=== PATIENT | female | born 1985 | race Hispanic/Latino ===

== ENCOUNTER 2018-12-20 18:16 | Day surgery (SDC) | payer OTHER ==
[2018-12-20] MEDS ORDERED: hydrALAZINE 20 MG/ML VIAL SLOW IVP PRN (18:58)
--- NOTE | 2018-12-20 19:00 | PDOC.FPROB ---
FMR OB H&P: HPI - History of Present Illness Chief Complaint: Decreased FM Indentification: 33yo at 27.3wks History of Present Illness: 33yo at 27.3wks presents for decreased FM since this morning after breakfast. Last at around 1530. Denies LOF, VB, abnormal discharge or dysuria. Has appt scheduled with Dr Avendano on Sunday. Primary Care Physician: Dr Avendano FMR OB H&P: Current - Care : 2 Para: 1 Gestational age: 27.3 Course/Complications: Low lying placenta reportedly resolved 1 mo ago when she saw Dr Avendano FMR OB H&P: History - OB History OB History: Prior complicated by gDM - [employer] History [employer] History: Hx of fibroids and D&C - Surgical History Sx History: Appendectomy - Social History Social History: Denies alcohol, drug and tobacco use. FMR OB H&P: Medications - Current Home Medications: Medication Instructions Recorded Confirmed Type Lyl546/Iron Fum/Folic/Docusate 1 tablet PO DAILY 12/20/18 12/20/18 History [ 19] Allergies/Adverse Reactions: Allergies Allergy/AdvReac Type Severity Reaction Status Date / Time No Known Allergies Allergy Unverified 12/20/18 19:01 FMR OB H&P: ROS - Review of Systems General: denies: fever/chills, fatigue Eyes: denies: vision changes, double vision ENT: denies: nasal congestion, rhinorrhea Cardiovascular: denies: chest pain, palpitation Respiratory: denies: shortness of breath Gastrointestinal: denies: abdominal pain, nausea, vomiting Genitourinary (Female): denies: dysuria, vaginal discharge, vaginal bleeding, contractions FMR OB H&P: Vital Signs - Maternal Vital signs: VS reviewed, wnl SBP 112 - Heart Tones Baseline: 150 Variability: moderate FMR OB H&P: Physical Exam - Physical Exam General: NAD, awake, alert and oriented HEENT: normocephalic and atraumatic, MMM, conjunctiva clear Neck: supple, trachea midline Heart: RRR, no murmurs/rubs/gallops General: CTAB, no respiratory distress Abdomen: soft, gravid, non-tender Musculoskeletal: no misalignment/asymmetry, no atrophy Neurological: no focal deficit Skin: no rash, good tugor Psychiatric: intact recent and remote memory, good judgement and insight, normal mood and affect FMR OB H&P: A/P - Problem List (1) Status: Acute Disposition: 33yo at 27.3wks IUP - Will monitor FHTs with 20min strip, current baseline 150 Dispo: 20min strip with good variability. Pt will follow up with Dr Avendano on Sunday Discussion: Date/Time: 12/20/18 8432 This H&P was discussed with [] and [] who agree with the above documentation and plan. Addendum - Attending - Attending Attestation Date/Time: 12/21/18 7026 I personally evaluated the patient and discussed the management with Dr. Smith. I agree with the History, Examination, Assessment and Plan documented above.
[2018-12-20 19:08] VITALS: BP 112/69; TEMP 98; BMI 32.8
== END 2018-12-20 19:20 | disposition home or self-care (01) ==
LOC: L&D/OP 18:16
PROVIDERS: ATTEND Obstetrics & Gynecology
DX: O36.8120 Decreased fetal movements, second trimester, not applicable or unspecified (principal); Z3A.27 27 weeks gestation of pregnancy
CPT/HCPCS: 99282

== ENCOUNTER 2019-02-09 17:16 | Day surgery (SDC) | payer OTHER ==
[2019-02-09 17:52] VITALS: BMI 34.5
[2019-02-09 17:55] VITALS: BP 122/76; TEMP 98.5
[2019-02-09] MEDS ORDERED: hydrALAZINE 20 MG/ML VIAL SLOW IVP PRN (18:49)
--- NOTE | 2019-02-09 18:57 | PDOC.LDHP ---
Labor and Delivery H&P HPI: Patient is a a33 yo at 34 weeks and 5 days, Mar 18...states HX of previa and was told it resolved, but has follow up sono this week. States good FM. No lof Review of Systems: complete ROS completed and as per HPI Current gestational age (weeks): 34 (5days) Due date: 03/18/19 Dating criteria: last menstrual period Grav: 2 Para: 1 OB History Details: x1 Current complications: other (HX previa but stated it resolved) Past Medical History: none Current medications: pre-kathia vitamins Allergies/Adverse Reactions: Allergies Allergy/AdvReac Type Severity Reaction Status Date / Time No Known Allergies Allergy Unverified 12/20/18 19:01 - Physical Exam Vital signs reviewed and normal: yes (122/76) General: NAD Heart: RRR Lungs: CTAB Abdomen: gravid Extremeties: no edema FHT: category 1 (large accels noted), variability present [place] contractions every: irreg - Assessment (late) at 34 weeks 5 days with HX previa, suspect Geary-Lubin. No VB. - Plan Plan: observation in L&D (I will check cervical length sono also to check placenta for record.)
--- NOTE | 2019-02-09 20:09 | PDOC.EVN ---
Event Note - Event Note Event Note: CX 3.7cm on sono...no previa. OK for DC to home
--- NOTE | 2019-02-09 20:31 | ULT ---
LIMIITED PELVIC ULTRASOUND: Date: 02-09-19 Provided Clinical History: Evaluate cervical length. FINDINGS: The cervix measures approximately 3.7 cm in length. The internal cervical os appears closed. There is no evidence for placenta previa on the basis of the submitted images. IMPRESSION: As above. POS: QUENTIN
== END 2019-02-09 20:44 | disposition home or self-care (01) ==
LOC: L&D/OP 17:16
PROVIDERS: ATTEND Obstetrics & Gynecology
DX: Z34.83 Encounter for supervision of other normal pregnancy, third trimester (principal); Z3A.34 34 weeks gestation of pregnancy

== ENCOUNTER 2019-03-01 16:39 | Day surgery (SDC) | payer OTHER ==
[2019-03-01 17:15] VITALS: BP 140/90; TEMP 99.1; BMI 35.5
[2019-03-01] MEDS ORDERED: hydrALAZINE 20 MG/ML VIAL SLOW IVP PRN (17:49)
--- NOTE | 2019-03-01 18:16 | PDOC.LDHP ---
Labor and Delivery H&P Chief complaint: contractions, loss of fluid HPI: 33 yo at 37.2 by presumed LMP/sono (no records available at this time) here for CTX for past 2 weeks. Feels them every 10 minutes, they do not take breath away and are localized to the mid lower abdomen. Also endorses dec FM today that didn't improve after eating and walking around. She denies VB/VD. Feeling anxious because ready to have baby. Patient denies problems during including high BP and diabetes. Current gestational age (weeks): 37 (37.4) Due date: 04/16/19 Dating criteria: other (unknown) Grav: 1 Para: 0 OB History Details: first Current complications: none Current medications: pre- vitamins (no recrods) Allergies/Adverse Reactions: Allergies Allergy/AdvReac Type Severity Reaction Status Date / Time No Known Allergies Allergy Verified 03/01/19 17:16 Social history: none - Physical Exam Vital signs reviewed and normal: yes General: NAD Heart: RRR Lungs: CTAB Abdomen: gravid Extremeties: no edema FHT: category 2 (one isolated deceleration that resolved) [place] contractions every: uterine irritability - Vaginal Exam cm dilated: 1 Effacement: 0% Station: -3 - OB Labs Blood type: unknown RH: unknown Antibody Screen: unknown HIV: unknown RPR: unknown HEPSAg: unknown 1 hour GCT: unknown GBS: unknown - Plan Plan: observation in L&D -: 1. IUP, term, labor rule out -FHT: Cat I -[place]: CTX q5min -SVE: /-3, pt states she was at 2cm last week in office -Will PO hydrate, eat, see if CTX space out 2. Dec FM -BPP 3. Leaking -amnisure 4. Resolved placenta previa -per patient report -reports rpt U/S shows it had resolved -no records -denies VB 5. Hx of A1GDM -reports GTT this was negative
[2019-03-01 18:20] LABS: Amnisure Test No Membranes Rupture (No Rupture)
[2019-03-01 18:21] LABS: Amnisure Internal Control QC ACCEPTABLE (ACCEPTABLE)
[2019-03-01 19:59] LABS: Creatinine, Urine Less than 20.00 mg/dL (47-110); Protein, Urine Random Quant Less than 10 mg/dL (1-14)
[2019-03-01 20:20] LABS: #Basophils 0.1 thou/uL (0.0-0.2); #Eosinphils 0.1 thou/uL (0.0-0.7); #Monocytes 0.8 thou/uL (0.11-0.59); #Neutrophils 5.7 thou/uL (1.40-6.50); %Basophils 0.6 % (0.0-1.0); %Eosinophils 1.2 % (0.0-10.0); %Lymphocytes 23.7 % (21.0-51.0); %Monocytes 8.7 % (0.0-10.0); %Neutrophils 65.8 % (42.0-75.0); Hemoglobin 13.3 g/dL (12.0-16.0); Mean Corpuscular HGB CONC 33.5 g/dL (32.0-36.0); Mean Corpuscular Hemoglobin 28.5 pg (27.0-31.0); Mean Corpuscular Volume 85.1 fL (78.0-98.0); Mean Platelet Volume 7.3 fL (7.4-10.4); Platelet Count 272 thou/uL (130-400); RBC Distribution Width 12.9 % (11.5-14.5); Red Blood Cell (RBC) Count 4.65 mill/uL (4.20-5.40); White Blood Cell (WBC) Count 8.6 thou/uL (4.8-10.8)
[2019-03-01 20:40] LABS: ALT (SGPT) 15 U/L (8-55); AST (SGOT) 16 U/L (5-34); Albumin 3.4 g/dL (3.5-5.0); Alkaline Phosphatase 226 U/L (40-110); Anion Gap 12 mmol/L (10-20); BUN (Urea Nitrogen) 5 mg/dL (7.0-18.7); Bilirubin, Total 0.2 mg/dL (0.2-1.2); Calc. Creatinine Clearance 181 mL/min (70-130); Carbon Dioxide 18 mmol/L (22-29); Chloride 109 mmol/L (98-107); Estimated GFR-MDRD Greater than 90; Globulin 3.2 g/dL (2.4-3.5); Glucose 118 mg/dL (70-105); Potassium 3.5 mmol/L (3.5-5.1); Protein, Total 6.6 g/dL (6.0-8.3); Sodium 135 mmol/L (136-145)
--- NOTE | 2019-03-01 20:42 | ULT ---
Exam: Ultrasound biophysical profile: HISTORY: Decreased movement Single viable intrauterine fetus in vertex presentation. Right-sided placenta. Amniotic fluid is with in normal limits. heart rate is 145 bpm. movement, breathing, tone and amniotic fluid are all evaluated. IMPRESSION: biophysical profile score is normal 12/26
--- NOTE | 2019-03-01 21:43 | PDOC.EVN ---
Event Note - Event Note Event Note: Patient with one severe range pressure SBP 160 then repeat 150. It was while shift change was occurring and patient was very anxious during this time. PIH workup negative. Repeat pressure borderline but others great at 120s. Mom says when pressures were high when she was stressed out telling her daughter to sit down. No preE symptoms. BPP 8/8. Patient ready and comfortable to go home. Has appt with Dr. boucher next week.
== END 2019-03-01 21:49 | disposition home or self-care (01) ==
LOC: L&D/OP 16:39
PROVIDERS: ATTEND Obstetrics & Gynecology
DX: O47.1 False labor at or after 37 completed weeks of gestation (principal); O36.8130 Decreased fetal movements, third trimester, not applicable or unspecified; O99.89 Other specified diseases and conditions complicating pregnancy, childbirth and the puerperium; N89.8 Other specified noninflammatory disorders of vagina; Z3A.37 37 weeks gestation of pregnancy
CPT/HCPCS: 36415; 76819; 80053; 82570; 84112; 84156; 85025

== ENCOUNTER 2019-03-13 05:30 | Inpatient (IN) | payer OTHER ==
[~2019-03-13 05:30] MED LIST: Acetaminophen 500 MG TAB PO PRN; Butorphanol Tartrate 1 MG/ML VIAL SLOW IVP PRN; Carboprost 250 MCG/ML AMP IM PRN; Diphenoxylate HCl/Atropine Tablet PO PRN; Docusate 100 MG CAP PO PRN; HYDROcodone/Acetaminophen 5/325 mg Tablet PO PRN; Ibuprofen 800 MG TAB PO PRN; Lidocaine 1% (PF) 30 ML VIAL SC PRN; Methylergonovine 0.2 MG/ML VIAL IM PRN; Misoprostol 200 MCG TAB PR PRN; NS / Oxytocin 40 units/1000ml 1,000 ML IV PRN; NS w/ Oxytocin 10 units 500 ML IV SCH; Ondansetron PF 4 MG/2 ML Vial IVP PRN; Promethazine HCl 25 MG/ML VIAL IM PRN; Zolpidem Tartrate 5 MG TAB PO PRN; hydrALAZINE 20 MG/ML VIAL SLOW IVP PRN
[2019-03-13 07:04] VITALS: BMI 35.9
[2019-03-13] MEDS ORDERED: FLU VACC QS2019-20(6MOS UP)/PF 60 MCG/0.5 ML SYRINGE IM ONE (07:30)
[2019-03-13] MEDS: Lactated Ringer's 1,000 ML IV SCH ×3 (07:30→17:57)
[2019-03-13 08:14] LABS: Mean Corpuscular HGB CONC 33.3 g/dL (32.0-36.0); Mean Corpuscular Hemoglobin 28.2 pg (27.0-31.0); Mean Corpuscular Volume 84.8 fL (78.0-98.0); Mean Platelet Volume 7.3 fL (7.4-10.4); Platelet Count 252 thou/uL (130-400)
[2019-03-13 08:54] LABS: HBSAg Index 0.21 S/CO (0-0.99); Hep B Surf Ag Non-Reactive S/CO (NonReactive); Syphilis Antibody Nonreactive (Nonreactive); Syphilis Antibody Index 0.09 S/CO (<1.00 Non-Reactive)
[2019-03-13] MEDS ORDERED: Bupivacaine/Epinephrine 0.25% 30 ML VIAL ONE (09:00)
[2019-03-13] MEDS ORDERED: Lidocaine 2% MPF 10 ML AMP (For Epidural Use) ONE (09:00)
[2019-03-13] MEDS ORDERED: Fentanyl 4 mcg/Bup 0.1% Cadd 100 ML ONE ×2 (10:10→18:34)
[2019-03-13] MEDS ORDERED: Lactated Ringer's 500 ML IV PRN (11:14)
[2019-03-13] MEDS ORDERED: diphenhydrAMINE 50 MG/ML VIAL IVP PRN (11:14)
[2019-03-13] MEDS ORDERED: Ondansetron PF 4 MG/2 ML Vial IVP PRN ×2 (11:14→22:00)
[2019-03-13] MEDS ORDERED: ePHEDrine/0.9% NaCl/PF SYRINGE 50 mg/10 ml SLOW IVP PRN (11:14)
[2019-03-13] MEDS ORDERED: Acetaminophen 325 MG TAB PO PRN (11:14)
[2019-03-13] MEDS ORDERED: Promethazine HCl 25 MG/ML VIAL IM PRN ×2 (11:14→22:00)
[2019-03-13] MEDS ORDERED: Naloxone HCl 0.4 mg/ml Vial IVP PRN ×2 (11:14)
[2019-03-13] MEDS ORDERED: Fentanyl 4 mcg/Bupivacaine 0.1% Cassette 100 ML EPIDURAL SCH (11:15)
[2019-03-13] MEDS ORDERED: Communication Order-Pharmacy FS SCH (11:15)
[2019-03-13] MEDS ORDERED: Lidocaine 1% PF 5 ML VIAL ONE (18:05)
[2019-03-13] MEDS ORDERED: Lidocaine 1% (PF) 30 ML VIAL ONE (18:07)
--- NOTE | 2019-03-13 18:25 | PDOC.LDHP ---
Labor and Delivery H&P HPI: 33 y/o at 39 and 2/7 weeks presents for scheduled induction of labor. Current gestational age (weeks): 39 Due date: 03/18/19 Grav: 2 Para: 1 Current complications: none Abnormal US findings: No Current medications: pre-kathia vitamins Previous surgical history: none Allergies/Adverse Reactions: Allergies Allergy/AdvReac Type Severity Reaction Status Date / Time No Known Allergies Allergy Verified 03/13/19 07:05 Social history: none - Physical Exam Vital signs reviewed and normal: yes General: NAD, resting Heart: RRR Lungs: CTAB Abdomen: gravid Extremeties: no edema FHT: category 1 - Assessment L&D Assessment: elective induction at term - Plan Plan: admit to L&D, cervical ripening
[2019-03-13] MEDS ORDERED: Bisacodyl 10 MG SUPP PR PRN (22:00)
[2019-03-13] MEDS ORDERED: Benzocaine-Menthol 82.5 ML CAN TOP PRN (22:00)
[2019-03-13] MEDS ORDERED: NS / Oxytocin 40 units/1000ml 1,000 ML IV SCH (22:00)
[2019-03-13] MEDS ORDERED: Preparation H Ointment 28 GM TUBE PR PRN (22:00)
[2019-03-13] MEDS ORDERED: Misoprostol 200 MCG TAB VAG PRN (22:00)
[2019-03-13] MEDS ORDERED: hydrALAZINE 20 MG/ML VIAL SLOW IVP PRN (22:00)
[2019-03-13] MEDS ORDERED: HYDROcodone/Acetaminophen 5/325 mg Tablet PO PRN ×2 (22:00)
[2019-03-13] MEDS ORDERED: diphenhydrAMINE 25 MG CAP PO PRN (22:00)
[2019-03-13] MEDS ORDERED: Lanolin Ointment 7 GM TUBE TOP PRN (22:00)
[2019-03-13] MEDS ORDERED: Methylergonovine 0.2 MG/ML VIAL IM PRN (22:00)
[2019-03-13] MEDS ORDERED: Zolpidem Tartrate 5 MG TAB PO PRN (22:00)
[2019-03-13] MEDS ORDERED: Milk Of Magnesia 30 ML UDCUP PO PRN (22:00)
[2019-03-13] MEDS ORDERED: Docusate Calcium (SURFAK) 240 MG CAP PO SCH (22:15)
[2019-03-14] MEDS: Ibuprofen 800 MG TAB PO SCH ×3 (05:16→21:17)
[2019-03-14 06:14] LABS: Hemoglobin 12.1 g/dL (12.0-16.0); Mean Corpuscular HGB CONC 33.3 g/dL (32.0-36.0); Mean Corpuscular Hemoglobin 28.5 pg (27.0-31.0); Mean Corpuscular Volume 85.6 fL (78.0-98.0); Mean Platelet Volume 7.4 fL (7.4-10.4); Platelet Count 217 thou/uL (130-400); Red Blood Cell (RBC) Count 4.24 mill/uL (4.20-5.40); White Blood Cell (WBC) Count 11.2 thou/uL (4.8-10.8)
[2019-03-14] MEDS: Ferrous Sulfate 325 MG TAB PO SCH (08:18)
[2019-03-14] MEDS: Prenatal Vitamin 1 TAB PO SCH (08:18)
[2019-03-14] MEDS: Docusate Calcium (SURFAK) 240 MG CAP PO SCH ×2 (08:19→20:15)
[2019-03-14] MEDS ORDERED: Adacel (T-DAP) 0.5 ML SYRINGE IM ONE (09:00)
[2019-03-14] MEDS ORDERED: Varicella virus, LIVE 0.5 ML VIAL SC ONE (09:00)
[2019-03-14] MEDS ORDERED: Measles/Mumps/Rubella 10 MCG/0.5 ML VIAL SC ONE (09:00)
[2019-03-14] MEDS: Simethicone Chewable 80 MG TAB PO PRN ×2 (15:47→20:15)
--- NOTE | 2019-03-14 20:47 | PDOC.PP ---
Post Progress Note Post Day #: 1 PO intake tolerated: yes Flatus: yes Ambulation: yes Vital Signs (12 hours) Temp Pulse Resp BP Pulse Ox 03/14/19 17:10 98.5 F 92 12 141/81 H 96 03/14/19 12:10 97.8 F 95 16 147/76 H 96 03/14/19 10:09 97.8 F 81 14 137/80 98 Weight Weight 190 lb - Physical Examination General: NAD Cardiovascular: no m/r/g, RRR Respiratory: clear to auscultation bilaterally, non-labored breathing Abdominal: + bowel sounds, lochia, no distention Neurological: no gross focal deficits Psychiatric: A&Ox3, normal affect Result Diagrams: 03/14/19 05:54 Additional Labs: Post Labs Blood Type AB POSITIVE 03/13/19 08:31 Hep Bs Antigen Non-Reactive S/CO (NonReactive) 03/13/19 07:53
--- NOTE | 2019-03-15 03:30 | DN ---
DATE OF PROCEDURE: 03/13/2019 TIME OF SERVICE: At 1909 hours, [place] Daylight Savings Time. PREOPERATIVE DIAGNOSIS: Intrauterine at 39 weeks and 2 days with a term induction of labor. POSTOPERATIVE DIAGNOSIS: Intrauterine at 39 weeks and 2 days with a term induction of labor. PROCEDURE PERFORMED: Spontaneous vaginal delivery over second-degree laceration of the perineum. FINDINGS: Viable female infant, weighing 3085 g or 6 pounds 13 ounces, Apgars 8 and 9. QUANTITATIVE BLOOD LOSS: 84 mL. COMPLICATIONS: None. PROCEDURE IN DETAIL: The patient presented to [facility] where she was admitted to the labor and delivery service. The patient underwent a normal and uneventful labor with normal cervical dilatation until she was found to be completely dilated. She was then allowed to push and was able to bring the baby down and delivered the baby in a vertex presentation without difficulties. Once the head delivered in occiput anterior position, the shoulders followed spontaneously along with the rest of the baby's body. Once out the baby's mouth and nose were bulb suctioned. The cord was clamped and cut and baby was handed to waiting attendants. Cord blood was collected. Gentle fundal massage was performed and the placenta delivered intact without problems. Hemostasis was assured. Quantitative blood loss was calculated. Inspection of the cervix, vaginal vault, and perineum did not reveal any lacerations needing suturing. Once again, hemostasis was within normal limits and the patient was allowed to recover in the labor and delivery room. Baby went to nursery. Job ID: [id number]
[2019-03-15] MEDS: Ferrous Sulfate 325 MG TAB PO SCH ×2 (04:50→09:33)
[2019-03-15] MEDS ORDERED: FLU VACC QS2019-20(6MOS UP)/PF 60 MCG/0.5 ML SYRINGE IM ONE ×2 (04:57→05:00)
[2019-03-15] MEDS: Ibuprofen 800 MG TAB PO SCH (05:02)
[2019-03-15] MEDS: Docusate Calcium (SURFAK) 240 MG CAP PO SCH (09:32)
[2019-03-15] MEDS: Prenatal Vitamin 1 TAB PO SCH (09:32)
[2019-03-15 10:18] VITALS: BP 138/92; TEMP 98.9
[2019-03-15] MEDS: Simethicone Chewable 80 MG TAB PO PRN (11:59)
== END 2019-03-15 13:10 | disposition home or self-care (01) | DRG 807 ==
LOC: L&D 06:10 → 3SW 22:43
PROVIDERS: ADMIT Obstetrics & Gynecology; ATTEND Obstetrics & Gynecology
PROC: 10907ZC Drainage of Amniotic Fluid, Therapeutic from Products of Conception, Via Natural or Artificial Opening (ICD-10-PCS; principal; 2019-03-14)
PROC: 10E0XZZ Delivery of Products of Conception, External Approach (ICD-10-PCS; 2019-03-14)
PROC: 3E033VJ Introduction of Other Hormone into Peripheral Vein, Percutaneous Approach (ICD-10-PCS; 2019-03-14)
DX: O70.1 Second degree perineal laceration during delivery (principal); Z37.0 Single live birth; Z3A.39 39 weeks gestation of pregnancy
CPT/HCPCS: 36415; 51702; 85027; 86780; 86850; 86900; 86901; 87340; 90471; 90686; 90715; G0008; J2001; J2590